=== PATIENT | male | born 1975 | race Caucasian/White ===

== ENCOUNTER 2019-08-24 20:02 | Emergency (ER) | payer OTHER ==
[~2019-08-24] VITALS: Ht 170.2 cm; Wt 83.9 kg
[~2019-08-24 20:02] MED LIST: NORCO 5-325 TA1 EACH PO
[2019-08-24] MEDS ORDERED: METFORMIN HCL500 MG PO (20:17)
[2019-08-24] MEDS ORDERED: LISINOPRIL10 MG PO (20:17)
[2019-08-24] MEDS ORDERED: PRINIVIL10 MG PO (20:54)
[2019-08-24] MEDS ORDERED: GLUCOPHAGE500 MG PO (20:54)
[2019-08-24] MEDS ORDERED: IBUPROFEN 800800 MG PO (20:54)
[2019-08-24 21:03] VITALS: BP 170/94
== END 2019-08-24 21:03 | disposition home or self-care (01) ==
LOC: M.ERS 20:02
DX: R52 Pain, unspecified (principal); Z76.0 Encounter for issue of repeat prescription; L40.0 Psoriasis vulgaris; I10 Essential (primary) hypertension; E11.9 Type 2 diabetes mellitus without complications; M19.90 Unspecified osteoarthritis, unspecified site

== ENCOUNTER 2019-09-19 16:26 | Emergency (ER) | payer OTHER ==
[~2019-09-19] VITALS: Ht 170.2 cm; Wt 86.2 kg
[~2019-09-19 16:26] MED LIST changes: +GLUCOPHAGE500 MG PO; +IBUPROFEN 800800 MG PO; +LISINOPRIL10 MG PO; +METFORMIN HCL500 MG PO; +PRINIVIL10 MG PO
[2019-09-19] MEDS ORDERED: IBUPROFEN 800800 M1 PO (17:06)
[2019-09-19] MEDS ORDERED: NORCO 5-325 TA1 EAC1 PO (17:06)
[2019-09-19 17:16] VITALS: BP 169/85
== END 2019-09-19 17:17 | disposition home or self-care (01) ==
LOC: M.ERS 16:26
DX: L40.50 Arthropathic psoriasis, unspecified (principal); M25.521 Pain in right elbow; M25.522 Pain in left elbow; I10 Essential (primary) hypertension; E11.9 Type 2 diabetes mellitus without complications; F17.210 Nicotine dependence, cigarettes, uncomplicated

== ENCOUNTER 2021-01-29 20:49 | Emergency (ER) | payer MEDICAID ==
[~2021-01-29] VITALS: Ht 170.2 cm; Wt 90.7 kg
[~2021-01-29 20:49] MED LIST changes: +IBUPROFEN 800800 M1 PO; +NORCO 5-325 TA1 EAC1 PO
[2021-01-29] MEDS ORDERED: FUROSEMIDE (21:02)
[2021-01-29] MEDS ORDERED: XIFAXAN (21:03)
[2021-01-29] MEDS ORDERED: SPIRONOLACTONE (21:03)
[2021-01-29] MEDS ORDERED: MULTIVITAMIN (21:04)
[2021-01-29] MEDS ORDERED: PROPRANOLOL (21:04)
[2021-01-29 21:31] LABS: ABSOLUTE BASOPHILS 0.1 thou/uL (0.0-0.2); ABSOLUTE EOSINOPHILS 0.1 thou/uL (0.0-0.7); ABSOLUTE LYMPHOCYTES 2.3 thou/uL (0.8-5.3); ABSOLUTE MONOCYTES 0.9 thou/uL (0.0-1.2); ABSOLUTE NEUTROPHILS 2.6 thou/uL (1.6-8.1); BASOPHILS 1.3 %; EOSINOPHILS 2.4 %; HEMATOCRIT 36.5 % (42.0-52.0); HEMOGLOBIN 12.5 gm/dL (14.0-18.0); LYMPHOCYTES 37.4 %; MCH 32.3 pg (26.0-34.0); MCHC 34.3 g/dL (28.0-37.0); MCV 94.2 fL (80.0-100.0); MONOCYTES 15.6 %; MPV 8.2 fl. (7.2-11.1); NUCLEATED RBCS 0 /100WBC; PLATELET COUNT* 115 thou/uL (150-400); POLYS 43.3 %; RBC 3.87 mil/uL (4.50-6.00); RDW-CV 15.3 % (10.5-14.5)
[2021-01-29 21:41] LABS: CALCIUM 8.7 mg/dL (8.5-10.1); CREATININE 1.1 mg/dL (0.6-1.3); INR 1.2; POTASSIUM 3.6 mmol/L (3.5-5.1); PROTIME 12.8 Seconds (9.20-11.50)
[2021-01-29 21:51] LABS: URINE BILIRUBIN NEGATIVE (Negative); URINE BLOOD NEGATIVE (Negative); URINE CLARITY CLEAR; URINE COLOR YELLOW; URINE GLUCOSE-RANDOM NEGATIVE (Negative); URINE KETONES NEGATIVE (Negative); URINE LEUKOCYTES-REFLEX NEGATIVE (Negative); URINE NITRITE-REFLEX NEGATIVE (Negative); URINE PROTEIN NEGATIVE (Negative); URINE SPECIFIC GRAVITY 1.015 (1.005-1.030); URINE UROBILINOGEN 0.2 E.U./dl (0.2-1.0)
[2021-01-29 21:52] LABS: ALBUMIN 2.6 g/dL (3.4-5.0); MAGNESIUM 1.8 mg/dL (1.8-2.4); TOTAL PROTEIN 7.5 g/dL (6.4-8.2)
[2021-01-29 21:58] LABS: AMP/METHAMP Negative (Negative); BARBITURATES Negative (Negative); BENZODIAZEPINES Negative (Negative); COCAINE Negative (Negative); METHADONE Negative (Negative); OPIATES Negative (Negative); PCP Negative (Negative); THC Negative (Negative)
[2021-01-29 22:02] LABS: TOTAL BILIRUBIN 1.8 mg/dL (<0.1-1.0)
[2021-01-29 22:57] VITALS: BP 123/68
--- NOTE | 2021-01-30 11:12 | EKG ---
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
== END 2021-01-29 22:56 | disposition home or self-care (01) ==
LOC: M.ERS 20:49
PROVIDERS: Emergency Medicine
DX: F41.9 Anxiety disorder, unspecified (principal); F10.129 Alcohol abuse with intoxication, unspecified; Y90.6 Blood alcohol level of 120-199 mg/100 ml; I10 Essential (primary) hypertension; E11.9 Type 2 diabetes mellitus without complications; L40.9 Psoriasis, unspecified; K74.60 Unspecified cirrhosis of liver; Z79.899 Other long term (current) drug therapy